=== PATIENT | female | born 2000 | race Caucasian/White ===

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

== ENCOUNTER → 2023-06-21 | Outpatient (CLI) | payer OTHER ==
[2023-06-21 18:12] LABS: HEMATOCRIT 41.1 % (36.0-47.0); HEMOGLOBIN 13.6 g/dl (12.0-15.5); MEAN CORPUSCULAR HEMOGLOBIN 29.2 pg (27.0-33.0); MEAN CORPUSCULAR HGB CONC 33.1 g/dl (32.0-36.5); MEAN CORPUSCULAR VOLUME 88.4 fl (80.0-96.0); PLATELET COUNT, AUTOMATED 209 10^3/uL (150-450); RED BLOOD COUNT 4.65 10^6/uL (4.00-5.40); WHITE BLOOD COUNT 9.3 10^3/uL (4.0-10.0)
[2023-06-21 19:07] LABS: HIV 1&2 SCREEN NEGATIVE (NEGATIVE)
[2023-06-21 19:15] LABS: HEPATITIS C VIRUS ABY INDEX 0.05 INDEX (<0.8)
[2023-06-21 22:03] LABS: CHLAMYDIA DNA AMPLIFICATION NEGATIVE (NEGATIVE); GC DNA AMPLIFICATION NEGATIVE (NEGATIVE)
== END ==
LOC: M PLALAB 15:12
PROVIDERS: ATTEND Advanced Practice Midwife
DX: Z34.01 Encounter for supervision of normal first pregnancy, first trimester (principal)

== ENCOUNTER → 2023-08-13 | Outpatient (CLI) | payer OTHER, MEDICAID | LOC: M WHC 11:27 | PROVIDERS: ATTEND Advanced Practice Midwife | DX: Z34.02 Encounter for supervision of normal first pregnancy, second trimester (principal) ==

== ENCOUNTER → 2023-09-13 | Outpatient (CLI) | payer OTHER, MEDICAID | LOC: M WHC 14:56 | PROVIDERS: ATTEND Obstetrics & Gynecology | DX: O32.1XX0 Maternal care for breech presentation, not applicable or unspecified (principal); Z3A.22 22 weeks gestation of pregnancy ==

== ENCOUNTER → 2023-09-19 | Outpatient (CLI) | payer OTHER ==
[2023-09-19 16:05] LABS: HEMATOCRIT 35.9 % (36.0-47.0); HEMOGLOBIN 11.9 g/dl (12.0-15.5); MEAN CORPUSCULAR HEMOGLOBIN 30.4 pg (27.0-33.0); MEAN CORPUSCULAR HGB CONC 33.1 g/dl (32.0-36.5); MEAN CORPUSCULAR VOLUME 91.6 fl (80.0-96.0); PLATELET COUNT, AUTOMATED 208 10^3/uL (150-450); RED BLOOD COUNT 3.92 10^6/uL (4.00-5.40); WHITE BLOOD COUNT 12.5 10^3/uL (4.0-10.0)
[2023-09-19 17:10] LABS: GC DNA AMPLIFICATION NEGATIVE (NEGATIVE)
== END ==
LOC: M PLALAB 12:35
PROVIDERS: ATTEND Obstetrics & Gynecology
DX: Z34.02 Encounter for supervision of normal first pregnancy, second trimester (principal)

== ENCOUNTER → 2023-12-11 | Outpatient (REF) | payer OTHER, MEDICAID | LOC: M SFHCWAGY 14:43 | PROVIDERS: ATTEND Obstetrics & Gynecology | DX: Z34.93 Encounter for supervision of normal pregnancy, unspecified, third trimester (principal) ==

== ENCOUNTER 2024-01-14 10:33 | Inpatient (IN) | payer OTHER, MEDICAID ==
[~2024-01-14] VITALS: Ht 165.1 cm; Wt 78.3 kg
[2024-01-14] VITALS (21 sets, daily range): BP systolic 110–151; BP diastolic 56–94
[2024-01-14] MEDS ORDERED: MULTTAB20 PO (10:57)
[2024-01-14] MEDS ORDERED: HOME MED LIST COMPLETE! XX SCH (11:00)
[2024-01-14] MEDS ORDERED: TRANEXAMIC ACID INJection 1,000 MG in NS 100 ML IV PRN (11:25)
[2024-01-14] MEDS ORDERED: OXYTOCIN INJ 10UNITS/ML 1ML VIAL IV PRN (11:25)
[2024-01-14] MEDS ORDERED: CARBOPROST TROMETHAMINE 250 MCG/ML AMP IM PRN (11:25)
[2024-01-14] MEDS ORDERED: METHYLERGONOVINE MALEATE 0.2MG/ML 1ML VIAL IM PRN (11:25)
[2024-01-14] MEDS ORDERED: OXYTOCIN DRIP 30 UNITS in IV 1 EA IV PRN (11:25)
[2024-01-14] MEDS ORDERED: OXYTOCIN INJ 10UNITS/ML 1ML VIAL IM PRN (11:25)
[2024-01-14 12:00] LABS: HEMATOCRIT 32.4 % (36.0-47.0); HEMOGLOBIN 10.3 g/dl (12.0-15.5); MEAN CORPUSCULAR HEMOGLOBIN 25.6 pg (27.0-33.0); MEAN CORPUSCULAR HGB CONC 31.8 g/dl (32.0-36.5); MEAN CORPUSCULAR VOLUME 80.6 fl (80.0-96.0); PLATELET COUNT, AUTOMATED 153 10^3/uL (150-450); RED BLOOD COUNT 4.02 10^6/uL (4.00-5.40)
[2024-01-14 13:10] LABS: HEPATITIS C VIRUS ABY INDEX < 0.02 INDEX (<0.8)
[2024-01-14] MEDS: LR 1,000 ML IV SCH (13:42)
[2024-01-14] MEDS: OXYTOCIN DRIP 30 UNITS in IV 1 EA IV SCH (13:43)
[2024-01-15] VITALS (10 sets, daily range): BP systolic 116–147; BP diastolic 61–82; O2SAT 97–98
[2024-01-15] MEDS: LIDOCAINE 1% MDV 20ML VIAL INFIL PRN (03:05)
[2024-01-15 03:08] LABS: CORD GAS ABE A -8.8; CORD GAS ABE V -5.6; CORD GAS HCO3 A 17.7 MMOL/L; CORD GAS HCO3 V 20.6 MMOL/L; CORD GAS O2 SAT A 81.5 %; CORD GAS O2 SAT V 77.8 %; CORD GAS PCO2 A 39.9 mmHg; CORD GAS PCO2 V 42.7 mmHg; CORD GAS PH A 7.264 UNITS; CORD GAS PH V 7.301 UNITS; CORD GAS PO2 A 41.6 mmHg; CORD GAS PO2 V 36.9 mmHg; CORD GAS SBC A 17.2 MMOL/L; CORD GAS SBC V 19.4 MMOL/L; CORD GAS TCO2 A 18.9 MMOL/L; CORD GAS TCO2 V 21.9 MMOL/L
[2024-01-15] MEDS ORDERED: ANUSOL HC CREAM 30GM TOP PRN (03:15)
[2024-01-15] MEDS ORDERED: MOM 30ML SUSPENSION UDC PO PRN (03:15)
[2024-01-15] MEDS ORDERED: RHO(D) IMMUNE GLOBULIN/MALTOSE 500MCG(2500IU)/2.2ML VIAL (WINRHO) IM SCH (03:15)
[2024-01-15] MEDS ORDERED: DOCUSATE SODIUM 100MG CAPSULE PO PRN (03:15)
[2024-01-15] MEDS: OXYTOCIN DRIP 30 UNITS in IV 1 EA IV PRN (03:21)
[2024-01-15] MEDS: ACETAMINOPHEN 500 MG TAB PO PRN (03:49)
[2024-01-15] MEDS: IBUPROFEN 800 MG TAB PO PRN (03:49)
[2024-01-15] MEDS: PRENATAL VITAMINS CHEWABLE TABLET PO SCH (10:03)
[2024-01-15] MEDS: DIBUCAINE 1% OINTMENT 30GM TOP PRN (10:03)
[2024-01-16 06:03] VITALS: BP 114/67; O2SAT 99
[2024-01-16 18:20] VITALS: BP 125/80; O2SAT 99
[2024-01-17] MEDS ORDERED: MEASLES,MUMPS,RUBELLA VACCINE INJ (MMR-II) SC.IMMUN ONE (09:00)
== END 2024-01-16 16:28 | disposition home or self-care (01) | DRG 560 ==
LOC: M LDI 10:33 → M OBS 01-15 04:20
PROVIDERS: ADMIT Obstetrics & Gynecology; ATTEND Obstetrics & Gynecology
PROC: 3E033VJ Introduction of Other Hormone into Peripheral Vein, Percutaneous Approach (ICD-10-PCS; 2024-01-14)
PROC: 10907ZC Drainage of Amniotic Fluid, Therapeutic from Products of Conception, Via Natural or Artificial Opening (ICD-10-PCS; 2024-01-14)
PROC: 10E0XZZ Delivery of Products of Conception, External Approach (ICD-10-PCS; principal; 2024-01-15)
PROC: 0KQM0ZZ Repair Perineum Muscle, Open Approach (ICD-10-PCS; 2024-01-15)
DX: O48.0 Post-term pregnancy (principal); O70.1 Second degree perineal laceration during delivery; Z3A.41 41 weeks gestation of pregnancy; Z37.0 Single live birth

== ENCOUNTER → 2024-09-28 | Outpatient (REF) | payer OTHER, MEDICAID ==
[~2024-09-28] MED LIST: MULTTAB20 PO
== END ==
LOC: M PLALAB 13:35
PROVIDERS: ATTEND Obstetrics & Gynecology
DX: Z01.419 Encounter for gynecological examination (general) (routine) without abnormal findings (principal)

== ENCOUNTER → 2024-10-07 | Outpatient (REF) | payer OTHER, MEDICAID ==
[2024-10-07 13:41] LABS: ALBUMIN 3.6 G/DL (3.2-5.2); ALKALINE PHOSPHATASE 101 U/L (35-104); ALT/SGPT 96 U/L (7.0-40); AST/SGOT 42 U/L (<34); BILIRUBIN,TOTAL 0.3 MG/DL (0.3-1.2); BLOOD UREA NITROGEN 9 MG/DL (9-23); CALCIUM LEVEL 8.7 MG/DL (8.5-10.1); CARBON DIOXIDE LEVEL 28 MMOL/L (20-31); CHLORIDE LEVEL 108 MMOL/L (98-107); CHOLESTEROL LEVEL 127 MG/DL (<200); CHOLESTEROL RISK RATIO 3.84 (<5); GLOMERULAR FILTRATION RATE > 90.0 (>60); GLUCOSE, FASTING 92 MG/DL (60-100); LDL CHOLESTEROL 67.4 MG/DL (<100); SODIUM LEVEL 143 MMOL/L (136-145); TOTAL PROTEIN 6.9 G/DL (5.7-8.2); TRIGLYCERIDES LEVEL 133 MG/DL (<150)
[2024-10-07 13:44] LABS: THYROID STIMULATING HORMONE 3.689 uIU/ML (0.55-4.78); TOTAL 25(OH) VITAMIN D 13.1 NG/ML (20.0-100.0)
[2024-10-07 14:00] LABS: HEMOGLOBIN A1c 5.3 % (4.0-6.0)
[2024-10-07 14:14] LABS: HIV 1&2 SCREEN NEGATIVE (NEGATIVE)
[2024-10-07 14:22] LABS: HEPATITIS C VIRUS ABY INDEX 0.03 INDEX (<0.8)
== END ==
LOC: M LAB REF 12:19
PROVIDERS: ATTEND Physician Assistant
DX: Z11.9 Encounter for screening for infectious and parasitic diseases, unspecified (principal); E66.9 Obesity, unspecified; E55.9 Vitamin D deficiency, unspecified

== ENCOUNTER → 2025-01-04 | Outpatient (CLI) | payer OTHER, MEDICAID | LOC: M WHC 10:29 | PROVIDERS: ATTEND Obstetrics & Gynecology | DX: Z32.02 Encounter for pregnancy test, result negative (principal) ==

== ENCOUNTER → 2025-02-23 | Outpatient (CLI) | payer OTHER, MEDICAID ==
[2025-02-23 12:14] LABS: ESTIMATED AVERAGE GLUCOSE 105.0 MG/DL (60-110); ESTRADIOL 440.3 PG/ML; FREE T4 1.05 NG/DL (0.89-1.76); LUTEINIZING HORMONE 20.2 mIU/ML; PROGESTERONE 0.53 NG/ML; PROLACTIN 8.45 NG/ML
[2025-02-24 08:18] LABS: DEHYDROEPIANDROSTERONE SULFATE 132.0 mcg/dL (14-349)
[2025-02-28 01:02] LABS: ANTI MULLERIAN HORMONE 6.48 ng/mL (1.02-14.63)
[2025-03-02 15:53] LABS: ESTROGENS TOTAL 595.0 pg/mL
[2025-03-05 11:17] LABS: 17 HYDROXY PROGESTERONE 88.0 ng/dL (see note)
== END ==
LOC: M PLALAB 09:07
PROVIDERS: ATTEND Obstetrics & Gynecology
DX: N91.1 Secondary amenorrhea (principal); Z32.02 Encounter for pregnancy test, result negative

== ENCOUNTER → 2025-03-11 | Outpatient (CLI) | payer OTHER, MEDICAID | LOC: M LAB 15:04 | PROVIDERS: ATTEND Obstetrics & Gynecology | DX: Z32.01 Encounter for pregnancy test, result positive (principal) ==

== ENCOUNTER → 2025-03-15 | Outpatient (CLI) | payer OTHER, MEDICAID | LOC: M PLALAB 09:21 | PROVIDERS: ATTEND Obstetrics & Gynecology | DX: Z32.01 Encounter for pregnancy test, result positive (principal) ==

== ENCOUNTER 2025-03-27 16:41 | Emergency (ER) | payer MEDICAID, OTHER ==
[~2025-03-27] VITALS: Ht 165.1 cm; Wt 86.3 kg
[2025-03-27 17:33] LABS: PLATELET COUNT, AUTOMATED 232 10^3/uL (150-450)
[2025-03-27 18:15] LABS: HCG, SERUM QUANTITATIVE 40892.9 MIU/ML (<4.2)
[2025-03-27 19:53] LABS: KETONE, URINE AUTO RFX NEGATIVE (NEGATIVE); LEUKOCYTE ESTERASE UR AUTO RFX NEGATIVE (NEGATIVE); MUCUS, URINE RFX SMALL (NEGATIVE); NITRITE, URINE AUTO RFX NEGATIVE (NEGATIVE); RBC, URINE AUTO RFX 1 /HPF (0-3); SQUAM EPITHELIAL CELL UR AURFX 5 /HPF (0-6); WBC, URINE AUTO RFX 1 /HPF (0-3)
[2025-03-27 20:26] LABS: HIV 1&2 SCREEN NEGATIVE (NEGATIVE)
[2025-03-27 20:52] LABS: Trichomonas vaginalis (AMP) NOT DETECTED (NEGATIVE)
[2025-03-27 21:16] LABS: GC DNA AMPLIFICATION NEGATIVE (NEGATIVE)
[2025-03-27 22:44] VITALS: BP 118/68; TEMP 98.6; O2SAT 100
== END 2025-03-27 23:23 | disposition home or self-care (01) ==
LOC: M ED 16:41
DX: O20.0 Threatened abortion (principal); Z3A.01 Less than 8 weeks gestation of pregnancy; Z79.810 Long term (current) use of selective estrogen receptor modulators (SERMs)

== ENCOUNTER → 2025-03-29 | Outpatient (CLI) | payer OTHER | LOC: M LAB 17:50 | DX: Z00.00 Encounter for general adult medical examination without abnormal findings (principal) ==

== ENCOUNTER → 2025-05-10 | Outpatient (CLI) | payer OTHER ==
[2025-05-10 18:21] LABS: PLATELET COUNT, AUTOMATED 228 10^3/uL (150-450)
[2025-05-10 19:11] LABS: HIV 1&2 SCREEN NEGATIVE (NEGATIVE)
[2025-05-10 19:19] LABS: HEPATITIS C VIRUS ABY INDEX < 0.02 INDEX (<0.8)
[2025-05-10 19:40] LABS: Trichomonas vaginalis (AMP) NOT DETECTED (NEGATIVE)
[2025-05-10 20:04] LABS: GC DNA AMPLIFICATION NEGATIVE (NEGATIVE)
== END ==
LOC: M LAB 16:37
PROVIDERS: ATTEND Nurse Practitioner Family
DX: Z34.80 Encounter for supervision of other normal pregnancy, unspecified trimester (principal)

== ENCOUNTER → 2025-05-12 | Outpatient (CLI) | payer OTHER | LOC: M PLALAB 13:35 | PROVIDERS: ATTEND Obstetrics & Gynecology | DX: Z34.82 Encounter for supervision of other normal pregnancy, second trimester (principal) ==

== ENCOUNTER → 2025-06-01 | Outpatient (CLI) | payer OTHER | LOC: M WHC 06:40 | PROVIDERS: ATTEND Obstetrics & Gynecology | DX: Z34.82 Encounter for supervision of other normal pregnancy, second trimester (principal) ==

== ENCOUNTER → 2025-06-01 | Outpatient (CLI) | payer OTHER | LOC: M PLALAB 08:07 | PROVIDERS: ATTEND Obstetrics & Gynecology | DX: Z34.82 Encounter for supervision of other normal pregnancy, second trimester (principal) ==

== ENCOUNTER → 2025-06-14 | Outpatient (CLI) | payer OTHER | LOC: M WHC 14:40 | PROVIDERS: ATTEND Obstetrics & Gynecology | DX: O36.5920 Maternal care for other known or suspected poor fetal growth, second trimester, not applicable or unspecified (principal); Z3A.00 Weeks of gestation of pregnancy not specified ==

== ENCOUNTER → 2025-06-14 | Outpatient (CLI) | payer OTHER ==
[2025-06-17 12:23] LABS: HERPES ZOSTER, VARICELLA IgG < 1.00 S/CO (>=1.00)
[2025-06-17 12:48] LABS: HSV 1 IGG TYPE SPECIFIC 21.40 index (<0.90)
== END ==
LOC: M PLALAB 15:01
PROVIDERS: ATTEND Obstetrics & Gynecology
DX: O36.5920 Maternal care for other known or suspected poor fetal growth, second trimester, not applicable or unspecified (principal); Z3A.00 Weeks of gestation of pregnancy not specified

== ENCOUNTER → 2025-06-15 | Outpatient (CLI) | payer OTHER | LOC: M RAD 13:45 | PROVIDERS: ATTEND Obstetrics & Gynecology | DX: O36.5920 Maternal care for other known or suspected poor fetal growth, second trimester, not applicable or unspecified (principal); Z3A.18 18 weeks gestation of pregnancy ==